=== PATIENT | male | born 1955 | race Caucasian/White ===

== ENCOUNTER 2019-03-20 22:43 | Inpatient (IN) | payer OTHER, MEDICAID ==
[~2019-03-20] VITALS: Ht 180.3 cm; Wt 127.0 kg
[~2019-03-20 22:43] MED LIST: ALDACTONE25 MG PO; ANORO ELLIPTA1 POW IH; COR3 PO; COZAAR50 MG PO; FLO4 PO; FUROSEMIDE40 MG PO; GLU500 PO
[2019-03-20 22:52] VITALS: Ht 180.3 cm; Wt 127.0 kg
--- NOTE | 2019-03-20 23:00 | NUR ---
PT BROUGHT TO ED BY [facility] AND [facility] FIRE WITH C/O ALOC. PER MEDICS, PT WAS FOUND WANDERING IN THE [email or web address] PARKING LOT. MEDICS STATE THAT PT WAS UNAWARE HOW HE GOT TO [facility] AND WAS UNAWARE OF WHERE HE WAS LIVING. PT IS ALERT AND ORIENTED TO PERSON, PLACE, AND TIME. PER MEDICS BLOOD GLUCOSE 127 ON SCENE. PT IS NOT NOTED WITH ANY SIGNS OF TRAUMA OR INJURY. PT DENIES FALL. [place] [employer] ON SCENE WELL. PT RESTING IN A POSITION OF COMFORT AT THIS TIME, PLACED ON MONITOR. PER MEDICS PT WAS IN ATRIAL FIBRILLATION, NO EKG OBTAINED BY MEDICS.
--- NOTE | 2019-03-20 23:01 | NUR ---
DR JETER AT BEDSIDE FOR MSE, NEURO EXAM NEGATIVE AT THIS TIME, LUNG SOUNDS CLEAR BILATERALLY.
--- NOTE | 2019-03-20 23:07 | NUR ---
PT OFF FLOOR FOR CT.
--- NOTE | 2019-03-20 23:13 | NUR ---
PT RETURNS FROM CT WITHOUT INCIDENT.
--- NOTE | 2019-03-20 23:36 | NUR ---
HOSE COUPLING JOINER AT BEDSIDE FOR BLOOD DRAW.
--- NOTE | 2019-03-20 23:37 | NUR ---
RT SATHISH AT BEDSIDE FOR ABG.
--- NOTE | 2019-03-20 23:47 | NUR ---
PROVIDED URINAL AT BEDSIDE. INSTRUCTED PT THE NEED FOR UA. PT VERBALIZED UNDERSTANDING.
[2019-03-21 00:19] LABS: BASOPHIL % 0.4 % (0-2); PLATELET COUNT 366 x10^3mcL (130-400)
[2019-03-21 00:43] LABS: CK-MB 1.2 ng/mL (0-3.6)
--- NOTE | 2019-03-21 00:45 | NUR ---
PT RESTING WITH EYES CLOSED AT THIS TIME, AOX4, RESP EVEN AND UNLABORED, NO ACUTE DISTRESS NOTED.
[2019-03-21 00:55] LABS: microscopic required? NO
[2019-03-21 01:06] LABS: CALCIUM 7.9 mg/dL (8.5-10.1); CARBON DIOXIDE 25.1 mmol/L (21-32); POTASSIUM SERUM 4.2 mmol/L (3.5-5.1)
[2019-03-21 01:11] LABS: BILIRUBIN TOTAL 0.2 mg/dL (0.20-1.00); TOTAL PROTEIN, SERUM 6.8 g/dL (6.4-8.2)
[2019-03-21 01:13] LABS: ALBUMIN 2.6 g/dL (3.4-5.0)
[2019-03-21 01:24] LABS: UA SPECIFIC GRAVITY <=1.005 (1.005-1.035); urine erythrocyte NEGATIVE (NEGATIVE)
--- NOTE | 2019-03-21 01:32 | NUR ---
PT MEDICATED FOR PAIN AT THIS TIME. PT REMAINS ON CM IN VIEW OF NURSE'S STATION.
--- NOTE | 2019-03-21 02:35 | NUR ---
PT REPORT CALLED TO ROHIT JACOME TO ASSUME PT CARE.
--- NOTE | 2019-03-21 02:40 | NUR ---
PT TRANSFERRED TO 255B BY [facility] BY MYSELF AND [facility] EMT. PT ON FULL CM AND 2L O2 FOR TRANSPORT. PT ALERT TO PERSON, PLACE, AND TIME, RESP EVEN AND UNLABORED, NO ACUTE DISTRESS NOTED. PT TRANSFERRED FROM [facility] TO BED WITHOUT INCIDENT. PT CARE ENDORSED TO ROHIT JACOME AT BEDSIDE.
--- NOTE | 2019-03-21 02:50 | NUR ---
RECEIVED PT FROM ER VIA GURNEY ACCOMPANIED BY RN AND EMT. PT TRANSFERRED TO BED 255 B WITH NO COMPLICATIONS. VITALS UPON ARRIVAL: R 94, NIBP 156/83 MAP 105, RR 18, TEMP 97.9. 94%. PT IS A/OX4. SPEECH IS CLEAR. ABLE TO MAKE NEEDS KNOWN AND FOLLOW COMMANDS. PT CONFUSED AT TIMES. BREATHING IS E/U ON 2 LPM VIA NC. LUNGS SOUND CLEAR TO BUL AND DIMIN TO BLL. SYMMETRICAL CHEST EXPANSION NOTED. S1/S2 HEART SOUNDS AUSCULTATED. CHEST WALL EQUAL AND SYMMETRICAL. DENIES ANY CP. PT ON TELE [address] PACEMAKER NOTED TO LEFT UPPER CHEST. PALPABLE PULSES X4 EXTREMITIES. SKIN IS WARM AND DRY. CAP REFILL < 3 SECS. +4 PITTING EDEMA NOTED TO BLE. LH IV IN PLACE WITH NO S/S OF INFILTRATION NOTED. GENERALIZED WEAKNESS. PT ON BEDREST. NO JOINT SWELLING/DEFORMITY NOTED. ACTIVE FULL ROM X4 EXTREMITIES. ABD IS SOFT/DISTENDED. BOWEL SOUNDS ACTIVE X4 QUADRANTS. PT STS HE HAD A FORMED BROWN BM YESTERDAY. PT VOIDS FREELY VIA URINAL. NO SCROTAL EDEMA/PENILE DISCHARGE NOTED. ECCHYMOSIS NOTED TO BUE. SCABS NOTED TO BUE/BLE. DRY FLAKY SKIN NOTED TO BLE. PT RESTLESS/AGITATED AT TIMES. PT ORIENTED TO ROOM AND USE OF CALL LIGHT. WILL CONT TO MONITOR
[2019-03-21 03:00] VITALS: BP 156/83
[2019-03-21 03:13] VITALS: BP 156/83
[2019-03-21 04:36] LABS: AMPHETAMINE QUAL UR NONE DETECTED (See below)
--- NOTE | 2019-03-21 05:25 | NUR ---
PT IS A/OX4, LYING IN BED. PT REMAINS ON 2 LPM VIA NC WITH NO S/S OF RESP DISTRESS NOTED. BREATHING IS E/U. LH IV REMAINS IN PLACE, SALINE LOCKED. BED IN LOW POSITION. CALL LIGHT IN REACH. WILL CONT TO MONITOR
--- NOTE | 2019-03-21 07:15 | NUR ---
REPORT GIVEN TO SHIRLENE JACOME. ALL QUESTIONS/CONCERNS ADDRESSED. ENDORSING ALL CARE
--- NOTE | 2019-03-21 07:50 | NUR ---
PATIENT IS SLEEPING BUT AROUSABLE WITH VERBAL STIMULI AND ORIENTED TO PERSON, PLACE AND WITH SOME FORGETFULNESS. PATIENT DENIES SHORTNESS OF BREATH, NAUSEA/VOMITING AT THIS TIME. PATIENT STATES HAVING SOME BACK PAIN 3/10 AND TOLERABLE AT THIS TIME. WILL MEDICATE FOR PAIN PRN. IV SITE NOTED AT LEFT HAND. TELE # 15 READS SINUS RHYTHMS AT THIS TIME. PACEMAKER/AICD TO LEFT UPPER CHEST. CALL LIGHT WITHIN REACH. SIDE RAILS UP X3. BED IS AT LOWEST POSITION.
[2019-03-21 09:11] VITALS: BP 144/63
--- NOTE | 2019-03-21 09:31 | NUR ---
INFORMED THE PATIENT THAT THE PATIENT WILL BE ADMINISTERED PNEUMOCOCCOCAL VACCINE; PATIENT REFUSED AND STATED, "I GOT THE VACCINE LAST YEAR."
--- NOTE | 2019-03-21 10:58 | NUR ---
PATIENT C/O ACHING TO LEFT SIDE OF CHEST 01/22; THE PAIN DOES NOT RADIATE. BP 123//62, MAP 81, HR 94, O2 SAT 94%. THE OXYGEN 2L/MIN VIA NASAL CANNULA ADMINSTERED TO THE PATIENT. DR. GARBER WAS CALLED AND NOTIFIED OF THIS ABOVE. TELEPHONE ORDER RECEIVED: EKG AND TROP X1 STAT. NITRO 0.4MG SL Q5 X3 PRN. WILL CARRY OUT THE ORDER.
[2019-03-21 13:15] VITALS: BP 132/71
--- NOTE | 2019-03-21 13:22 | NUR ---
DR. GARBER IS AT NURSE STATION AND WAS INFORMED THE RESULT OF EKG AT 1058 AND TROP LEVEL<0.02. NO FURTHER ORDER RECEIVED AT THIS TIME.
--- NOTE | 2019-03-21 15:50 | NUR ---
CALLED TELE CONSULT; DARRICK ANSWERED THE PHONE AND WAS PROVIDED THE PATIENT'S INFORMATION. AWAITING FOR THE CONSULT.
[2019-03-21 17:35] VITALS: BP 116/58
--- NOTE | 2019-03-21 18:05 | NUR ---
DR. EVERARDO HENDERSON, TELE CONSULT WAS PAGED TO NOTIFY HER THAT THE PATIENT HAS PACEMAKER/AICD, BUT HER RECOMMENDATION IS BRAIN MRI WITH AND W/O GADO. ALSO, ING-1 NEEDS TO BE VERIFIED FOR THE ORDER. AWAITING FOR DR. HENDERSON TO CALL BACK.
--- NOTE | 2019-03-21 18:49 | NUR ---
CALLED TO AND MADE AWARE THAT THE PATIENT IS ALLERGIC TO IODINE AND HE ORDERED TO TRANSFER TO [facility] FOR NEUROSURGEON CONSULT.
--- NOTE | 2019-03-21 20:49 | NUR ---
PATIENT RECEIVED AWAKE, ALERT, ORIENTED X3 IN BED. FORGETFUL AT TIMES. RESPIRATION EVEN AND UNLABORED, ON O2 2L PER NC. SALINE LOCK TO LT HAND PATENT AND INTACT. COMPLAINED OF BACK PAIN, 03/24. MEDICATED WITH MORPHINE SULFATE 2 MG IVP ORDERED. LBM 03/20/19. +4 EDEMA TO BLE. VOIDING FREELY WITHOUT DIFFICULTY, USES URINAL. GENERALIZED WEAKNESS TO EXTREMITIES. NEEDS ASSISTANCE WITH ADL'S. ECCHYMOSIS TO BUE, SCABS TO BUE/BLE AND DRY, FLAKY SKIN TO BLE. NEEDY AT TIMES. ON TELE #15. WILLL CONTINUE TO MONITOR.
[2019-03-21 21:21] VITALS: BP 111/38
--- NOTE | 2019-03-21 22:23 | NUR ---
PATIENT COMPLAINED OF STEADY SHARP/STABBING CHEST PAIN, 10/10. LATEST VITAL SIGNS FOLLOWS BP 100/42, HR 106, RR 20, O2 SAT 95% ON O2 2L PER NASAL CANNULA. MEDICATED WITH NITRO 0.4 MG SL ORDERED. WILL CONTINUE TO MONITOR.
[2019-03-22] VITALS (11 sets, daily range): BP systolic 101–138; BP diastolic 56–79
[2019-03-22 06:36] LABS: BASOPHIL % 0.4 % (0-2); PLATELET COUNT 393 x10^3mcL (130-400)
--- NOTE | 2019-03-22 06:50 | NUR ---
PATIENT RESTING IN BED. RESPIRATION EVEN AND UNLABORED, ON ROOM. SALINE LOCK TO LEFT HAND PATENT AND INTACT. COMPLAINED OF BACK PAIN,03/24. MEDICATED WITH MORPHINE SULFATE 2 MG IVP ORDERED. IRRITABLE, NEEDY, RUDE AT TIMES. ASSISTED WITH NEEDS. PLACED BED IN THE LOWEST POSITION. PLACED CALL LIGHT WITHIN REACH AT ALL TIMES.
[2019-03-22 06:55] LABS: RED CELL DISTRIBUTION WIDTH 19.3 % (11.5-14.5)
[2019-03-22 06:59] LABS: ALBUMIN 2.6 g/dL (3.4-5.0); BILIRUBIN TOTAL 0.3 mg/dL (0.20-1.00); CALCIUM 8.4 mg/dL (8.5-10.1); CARBON DIOXIDE 36.1 mmol/L (21-32); CREATININE SERUM 1.6 mg/dL (0.7-1.3); POTASSIUM SERUM 4.4 mmol/L (3.5-5.1); T4(THYROXINE) 4.3 ug/dL (4.7-13.3); TOTAL PROTEIN, SERUM 7.3 g/dL (6.4-8.2)
--- NOTE | 2019-03-22 07:10 | NUR ---
RECEIVED REPORT FROM VEENA JACOME, PT SLEEPING IN BED IN NO ACUTE DISTRESS
--- NOTE | 2019-03-22 07:42 | NUR ---
PT IN BED, IN NO ACUTE DISTRESS, VERBAL, AXOX3, CONFUSED AT TIMES, ABLE TO MAKE NEEDS KNOWN, CALM AND COOPERATIVE AT THIS TIME, POOR VISION BILATERLA EYES, PERRLA, NO REDNESS/DRAINAGE, NO FACIAL DROOP/SLURRED SPEECH, DENIED CP/PALPITATION/RODRIGUEZ, DENIED N/V/D, RESP EVEN, NO SOB/COUGH, DIM BLL, BIPAP PRN, 2L/MIN, NC, 94%, RT PROTOCOL, TELE #15, NSR, PACEMAKER TO RISSA, CHEST RISE SYMMETRICALLY, ABD ROUND AND NON-TENDER TO TOUCH, BS ACTIVE X 4, PALP PULSES, CAP REFILL < 3S, +4 NON-PITTING EDEMA TO BLE, ELEVATED FEET WHILE IN BED, SEE SKIN ASSESSMENT, SKIN C/D/W, GENERLAIZED WEAKNESS, PT PROTOCOL, IV PATENT AND FLUSHINIG WELL, DRESSING CDI, ALL NEEDS ADDRESSED AT THIS TIME, SAFETY PROTOCOL MAINTAINED, CONTINUE TO MONITOR
[2019-03-22 07:55] LABS: ERYTHROCYTE SED RATE 86 mm/hr (0-20)
--- NOTE | 2019-03-22 08:02 | NUR ---
PT REFUSED US CAROTID PROCEDURE, DR GARBER MADE AWARE, NNO, CONTINUE TO MONITOR
--- NOTE | 2019-03-22 09:48 | NUR ---
AM MEDS GIVEN PER MD ORDER VIA EMAR, TOLERATED WELL, NO ASE NOTED AT THIS TIME, EDUCATION R/T MED, ASE AND MONITOR GIVEN TO PT, VERBALLY UNDERSTANDING, CONTINUE TO MONITOR
--- NOTE | 2019-03-22 13:45 | NUR ---
PT ASSISTED TO BATHROOM, BM X 1, LARGE, ASSISTED BACK TO BED, IN NO ACUTE DISTRESS, PT REFUSED TO PUT O2 VIA NC AT THIS TIME, O2 AT 92%
--- NOTE | 2019-03-22 16:59 | NUR ---
PT REPORTED CP, LOCAL, NOT REDIATE TO OTHER PLACE, NITRO GIVEN PER PRN ORDER SUBLINGUAL, TOLERATED WELL, REPOTED PAIN SUBSIDED AFTER 5 MINS, PT RESTING IN BED IN NO ACUTE DISTRESS AT THIS TIME, CHARGE SMITH RICHMOND MADE AWARE, CONTINUE TO MONITOR
--- NOTE | 2019-03-22 17:22 | NUR ---
LAB REPORT PT (+) MRSA NARES, CONTACT ISOLATION INITIATED, PT MADE AWARE, CHARGE NURSE BASILIO MADE AWARE
--- NOTE | 2019-03-22 18:06 | NUR ---
TELE REAPLIED, HR NOTED 80 AT THIS TIME, DENIED CP/PALPITATIONHA, PT IN BED IN NO ACUTE DISTRESS
--- NOTE | 2019-03-22 18:43 | NUR ---
PT SLEEPING IN BED, IN NO APPARENT DISTRESS, NO FACIAL DROOP, RESP EVEN, NO SON/COUGH, 2L/MIN, 94%, NC, RT PROTOCOL, BIPAP PRN HS, TELE #15, PACE MAKER TO RISSA, IV PATENT AND FLUSING WELL, DRESSING CDI, ALL NEEDS ADDRESSED AT THIS TIME, SAFETY PROTOCOL FOLLOWED, WILL ENDORSE TO ONCOMING RN
--- NOTE | 2019-03-22 19:05 | NUR ---
PT IN BED IN NO ACUTE DISTRESS, TELE, DENIED CP/PALPITATION, DENIED N/V, DENIED NUMBESS/TINGLING TO (R) WRIST, CAP REFILL < 2S, SKIN C/D/W, IV PATENT AND FLUSHING WELL, DRESSING CDI, ALL NEEDS ADDRESSED, MANUELA ENDROSE TO NIGHT RN
--- NOTE | 2019-03-22 20:19 | NUR ---
CALLED TO AND MADE AWARE THAT THE PATIENT BE TRANSFER TONITE TO [facility].
--- NOTE | 2019-03-22 20:26 | NUR ---
[facility] FROM [facility] CALLED AND BED IS AVAILABLE AT [facility] [address], OBS/TELE UNIT. ACCEPTING MD IS DR. Margarita CARRION. TO GIVE REPORT TO [phone]. [facility] WILL CALL. PT CONTACT ISOLATION MRSA NARES. [facility] TO STOP BY ER.
--- NOTE | 2019-03-22 23:44 | NUR ---
1999 pt informed hi is going to be transferred to [facility]. He is happy for that. Pt left with belongings with EMS at 2200.
[2019-03-23 05:07] LABS: RAPID PLASMA REAGIN Non Reactive (Non Reactive)
[2019-03-23 09:08] LABS: RHEUMATOID ARTHRITIS FACTOR 12.2 IU/mL (0.0-13.9)
== END 2019-03-22 22:30 | disposition short-term general hospital (02) | DRG 70 ==
LOC: ED 22:43 → DU 03-21 02:11
PROVIDERS: Emergency Medicine; ADMIT Internal Medicine
DX: G93.89 Other specified disorders of brain (principal); G93.41 Metabolic encephalopathy; I42.9 Cardiomyopathy, unspecified; J44.9 Chronic obstructive pulmonary disease, unspecified; I12.9 Hypertensive chronic kidney disease with stage 1 through stage 4 chronic kidney disease, or unspecified chronic kidney disease; N18.9 Chronic kidney disease, unspecified; E11.22 Type 2 diabetes mellitus with diabetic chronic kidney disease; G47.33 Obstructive sleep apnea (adult) (pediatric); I25.10 Atherosclerotic heart disease of native coronary artery without angina pectoris; Z59.0 Homelessness; Z68.39 Body mass index [BMI] 39.0-39.9, adult; Z79.84 Long term (current) use of oral hypoglycemic drugs; Z95.810 Presence of automatic (implantable) cardiac defibrillator
CPT/HCPCS: 36600; 82024; 82962; 84439; 86431; 90658; G0378; G0480; J1940; J2270; J2405; J3490; J7030; J7620; Q0092

== ENCOUNTER 2019-03-23 16:11 | Inpatient (IN) | payer OTHER, MEDICAID ==
[~2019-03-23] VITALS: Ht 180.3 cm; Wt 127.0 kg
[2019-03-23 16:11] VITALS: Ht 180.3 cm; Wt 127.0 kg
--- NOTE | 2019-03-23 16:37 | NUR ---
PT BIB [facility] FOR MECHANICAL FALL OVER A CEMENT PIECE IN PARKING LOT AT [employer] [facility]. PT DENIES ANY LOSS OF CONSCIOUSNESS AAOX4 ABRASIONS TO BILATERAL KNEES. AND BUE DRY BLOOD NOTED TO SIDE OF L EYE NO LAC NOTED PT IN POSITION OF COMFORT AWAITING EVROBERTO AND ORDERS.
--- NOTE | 2019-03-23 16:57 | NUR ---
CARE OF PT RESUMED BY PRIMARY RN JAVIER
--- NOTE | 2019-03-23 17:52 | NUR ---
PT IN XRAY.
--- NOTE | 2019-03-23 18:43 | NUR ---
PT BACK FROM XRAY. REPORTS CONTINUED PAIN AND YELLING OUT FOR PAIN MEDICATION. DR NGUYEN NOTIFIED. VSS.
--- NOTE | 2019-03-23 19:08 | NUR ---
REPORT RECEIVED FROM JAVIER AGENCY RN
--- NOTE | 2019-03-23 19:50 | NUR ---
2 UNSUCCESSFUL IV ATTEMPTS BY ME SIVAKUMAR JACOME AT BEDSIDE FOR IV INSERTION ATTEMPT
[2019-03-23 19:54] LABS: BASOPHIL % 0.2 % (0-2); PLATELET COUNT 375 x10^3mcL (130-400)
[2019-03-23 19:57] LABS: RED CELL DISTRIBUTION WIDTH 19.2 % (11.5-14.5)
[2019-03-23 20:16] LABS: CARBON DIOXIDE 34.5 mmol/L (21-32); CREATININE SERUM 1.4 mg/dL (0.7-1.3); POTASSIUM SERUM 4.5 mmol/L (3.5-5.1)
[2019-03-23 20:21] LABS: BILIRUBIN TOTAL 0.42 mg/dL (0.20-1.00); TOTAL PROTEIN, SERUM 7.6 g/dL (6.4-8.2)
[2019-03-23 20:23] LABS: ALBUMIN 2.8 g/dL (3.4-5.0)
--- NOTE | 2019-03-23 20:39 | NUR ---
REPORT GIVEN TO TOO JACOME
--- NOTE | 2019-03-23 21:02 | NUR ---
PT PROVIDED WITH [facility] PER REQUEST. MD NGUYEN STATES OKAY PRIMARY RN TOO AWARE PT WAS FED AND THAT PT IS SEEING THINGS PT SEEN TO BE POINTING AT THINGS AND ASKING QUESTIONS ABOUT THINGS THAT ARE NOT THERE. PT STATES "CAN I HAVE SOME OF THOSE CHIPS" WHEN ASKED WHAT CHIPS HE POINTS TO THE BLANK WALL AT THE NURSES STATION
--- NOTE | 2019-03-23 21:20 | NUR ---
RECEIVED FROM ER, TRANSPORTED VIA [facility]. AWAKE, ALERT, ABLE TO STATE NAME, , UNABLE TO STATE WHERE HE IS, ABLE TO STATE YEAR AND MONTH. PT FORGETFUL. DENIES HAVING DIZZINESS. BREATHING EVEN AND UNLABORED ON ROOM AIR, O2 SAT 83-85%. PLACED ON 3LPM OF O2 VIA NC, O2 SAT 93%. LUNG SOUNDS DIMINISHED TO BASES. IMMOBILIZER TO LEFT KNEE. ABLE TO MOVE LEFT TOES AND LEFT FOOT. CAPILLARY REFILL TO LEFT TOES < 2 SECS. SWELLING TO LEFT KNEE. SALINE LOCK, 24G TO RIGHT WRIST. STATED HE USED TO STAY IN [facility], BUT HAS NOT BEEN ABLE TO STAY THERE DUE TO FINANCIAL REASONS. ORIENTED TO ROOM ENVIRONMENT, INSTRUCTED ON USE OF CALL LIGHT TO CALL FOR ASSISTANCE. PLACED WITHIN EASY REACH, BED ALARM ON. HOB ELEVATED 20 DEG. ENDORSED TO NURSE GAGE. ON CONTACT ISOLATION, RECENT HX OF MRSA.
[2019-03-23 21:59] VITALS: BP 132/70
[2019-03-23 23:10] VITALS: BP 132/70
[2019-03-24 05:01] VITALS: BP 158/66
--- NOTE | 2019-03-24 07:11 | NUR ---
RECEIVED PT FROM FABRIC MACHINE OPERATOR NURSE. PT SITTING UPRIGHT IN BED A0X2, RESP E/U ON 4L NC. PT SLIGHTLTY CONFUSED, REORIENTED PT TO STAFF AND ROOM, OTHERWISE NO ACUTE DISTRESS NOTED. SALINE LOCKED TO R WRIST W/ NO ERYTHEMA OR EDEMA. KNEE BRACE TO L LEG INTACT. BED IN LOWEST POSITION AND CALL LIGHT WITHIN REACH. ON CONTACT PRECAUTIONS FOR MRSA NARES. WILL CONTINUE TO MONITOR.
[2019-03-24 07:59] VITALS: BP 134/70
[2019-03-24 11:51] VITALS: BP 111/68
--- NOTE | 2019-03-24 12:30 | NUR ---
PT IN BED SLEEPING, AROUSABLE, RESP E/U ON 4L NC. NO ACUTE DISTRESS NOTED AT THIS TIME. BED IN LOWEST POSITION AND CALL LIGHT WITHIN REACH. WILL CONTINUE TO MONITOR.
[2019-03-24 16:03] VITALS: BP 122/66
--- NOTE | 2019-03-24 18:26 | NUR ---
PT ASSISTED TO BEDSIDE COMMODE, GAIT UNSTEADY BUT ABLE TO TOLERATE A FEW STEPS AND TURNING W/ WALKER AND ASSISTANCE. ASSISTED BACK TO BED, PT AXO2, RESP E/U ON 4L NC. NO ACUTE DISTRESS NOTED. SALINE LOCKED TO R WRIST W/ NO ERYTHEMA OR EDEMA. BED IN LOWEST POSITION AND CALL LIGHT WITHIN REACH. WILL ENDORSE TO ONCOMING NURSE.
--- NOTE | 2019-03-24 19:51 | NUR ---
RECEIVED PT FROM PREVIOUS SHIFT. PT A/OX2. DENIES SOB ON 3LNC. MEDICATED PRN PER EMAR. IV PATENT, FLUSHING WELL. CALL LIGHT WITHIN REACH, BED IN LOW POSITION. WILL CONTINUE TO MONITOR.
[2019-03-24 21:10] VITALS: BP 121/62
--- NOTE | 2019-03-25 00:21 | NUR ---
IV TO R WRIST REMOVED BY PATIENT. DENIES PAIN. NO BLEEDING/SWELLING TO SITE. NEW IV PLACED TO L HAND BY NAA PURCELL. WILL CONTINUE TO MONITOR.
--- NOTE | 2019-03-25 02:01 | NUR ---
PT RESTING IN NO ACUTE DISTRESS. RR EVEN AND UNLABORED. CALL LIGHT WITHIN REACH, BED IN LOW POSITION. WILL CONTINUE TO MONITOR.
--- NOTE | 2019-03-25 04:49 | NUR ---
PT REMOVED IV TO L HAND. NEW IV PLACED TO RFA BY ESTELLA MENDEZ. CALL LIGHT WITHIN REACH, BED IN LOW POSITION. WILL CONTINUE TO MONITOR.
[2019-03-25 05:50] VITALS: BP 107/77
--- NOTE | 2019-03-25 08:06 | NUR ---
A&OX3, FOLLWOS COMMANDS. MED/SURG PATIENT. PERIPHERAL PULSES PALPABLE, WITH BLE NONPITTING EDEMA. DIMINISHED BILATERAL LUNG SOUNDS W/ NC 3L O2 SAT 97%. NORMOACTIVE BSX4 PRESENT, LAST BM 03/23/19. VOIDS WELL W/ URINAL AT BEDSIDE. L KNEE BRACED, GENERALIZED WEAKNESS, NEEDS ASSISTANCE IN GOING UP THE BED. MULTIPLE SCABS PRESENT, W/ SITES CDI. RFA IV SITE CDI, SALINE LOCKED. COOPERATES WELL.
[2019-03-25 08:39] VITALS: BP 122/59
--- NOTE | 2019-03-25 16:22 | NUR ---
CALLED TO [facility] AND SPOKE W/ JOY ADMISSION COORDINATOR AND ASKED FOR ACCEPTING DOCTOR AND SHE STATED IT'S . CALLED TO AND MADE AWARE THAT THE PATIENT IS ACCEPTED AT [facility] AND W/ ALEX.
[2019-03-25 16:27] VITALS: BP 122/59
[2019-03-25 16:47] VITALS: BP 116/68
--- NOTE | 2019-03-25 17:26 | NUR ---
GAVE REPORT TO RN AT [facility]. MENTIONED PATIENT'S STATUS AND REPORTED HEALTH ASSESSMENT. REPORTED THAT AMBULANCE IS PICKING UP PATIENT AT 1930. GAVE CALLBACK NUMBER IN CASE OF FURTHER QUESTIONS THAT ARE TO BE ASKED.
--- NOTE | 2019-03-25 18:58 | NUR ---
PATIENT IS ALERT AND ORIENTED X3. PATIENT REMAINS FREE FROM DISTRESS. PATIENT NEEDS HAVE BEEN MET THROUGHOUT THE SHIFT. PLANS IS TO BE TRANSFERRED TO A SNF DURING [facility].
--- NOTE | 2019-03-25 19:15 | NUR ---
CARE ASSUMED FROM OUTGOING RN. PT RESTING COMFORTABLY IN BED. NO ACUTE DISTRESS NOTED. EVEN AND UNLABORED RESPIRATIONS ON RA. MEDSURG PT. IVL INTACT. LEFT KNEE BRACED DUE TO FX. C/O PAIN, WILL MEDICATE PER EMAR. ORDERS TO TX TO SNF, WILL GO OVER TRANSFER PAPERWORK WITH PT. TRANSPORT ETA 193. BED IN LOWEST POSITION. SIDE RAILS UPX2. CALL LIGHT WITHIN REACH. WILL CONTINUE TO MONITOR.
[2019-03-25 21:00] VITALS: BP 107/58
--- NOTE | 2019-03-25 21:00 | NUR ---
[facility] AT BEDSIDE. IV TO RFA REMOVED, CATHETER INTACT, PRESSURE APPLIED, NO EXCESSIVE BLEEDING NOTED, GAUZE AND TYPE APPLIED. ALL BELONGINGS NOTED FOR. PAPERWORK SIGNED. PT IN NO ACUTE DISTRESS. WILL ENDORSE TO TRANSPORT.
--- NOTE | 2019-03-25 21:05 | NUR ---
[facility] PERSONNELS ADVISED THAT PT IS NOT QUALIFIED FOR [facility] DUE TO WEIGHT AND HEIGHT. RACE RELATIONS ADVISER NOTIFIED.
--- NOTE | 2019-03-25 21:08 | NUR ---
[facility] CAME AND UNABLE TO PICK PT UP ON THEIR REGULAR [facility] DUE TO PT NEEDS JACOBY TRUJILLO. SPOKEN WITH [facility] [phone] AND [facility] TRU[facility] WONT BE AVAILABLE UNTIL MAYBE 2AM. SCHEDULED PATIENT TO BE MFT AT 0545AM TOMORROW MORNING PER [facility]. [facility] NOTIFIED CARMITA MADE AWARE, SPOKEN WITH AGUSTIN. PT MADE AWARE.
--- NOTE | 2019-03-25 21:21 | NUR ---
CALLED JILLIAN VIZCARRA REGARDING [facility]CH[facility] OR [facility] AT 5:45 AM.
--- NOTE | 2019-03-26 00:20 | NUR ---
PT ASLEEP COMFORTABLY IN BED. NO ACUTE DISTRESS NOTED. EVEN AND UNLABORED RESPIRATIONS ON RA. BED IN LOWEST POSITION. SIDE RAILS UPX2. CALL LIGHT WITHIN REACH. WILL CONTINUE TO MONITOR.
[2019-03-26 05:17] VITALS: BP 149/77
--- NOTE | 2019-03-26 06:16 | NUR ---
PT SLEPT COMFORTABLY IN INTERVALS THROUGHOUT THE SHIFT. ALL NEEDS TENDED TO AND MET. ALL SCHEDULED MEDICATIONS GIVEN. C/O PAIN MEDICATED PER EMAR. REMOVED PT WATCH, SKIN TEAR NOTED AND CLEANED. PHOTO TAKEN. DRESSING WITH NON ADHESIVE DRESSING AND TERRI WRAP. BLOOD SUGARS CHECKED, NO COVERAGE NEEDED PER SLIDING SCALE. CURRENTLY AWAITING TRANSPORTATION TO TRANSFER TO SNF. ALL PAPERWORKS SIGNED, IV REMOVED. BED IN LOWEST POSITION. SIDE RAILS UPX2. CALL LIGHT WITHIN REACH. WILL ENDORSE TO TRANSPORTATION OR ONCOMING SHIFT.
--- NOTE | 2019-03-26 07:30 | NUR ---
RECEIVED REPORT FROM [facility] NURSE, PATIENT ALERT/ORIENTEDX4, ABLE TO MAKE NEEDS KNOWN AND FOLLOW COMMANDS. SPEECH CLEAR, EQUAL GREEN PIPEFITTER, CATERACTS NOTED TO EYES. DENIES HEADACHE. NO S/S CHEST PAIN, M/S PATIENT. LUNGS DIM BILAT, DENIES FEELING SOB ON RA, CHEST EXP SYMMETRICAL. BOWEL SOUNDS ACTIVE, PASSING GAS. DENIES N/V. LAST BM YESTERDAY, PATIENT STATES NORMAL. VOIDS TO URINAL, CLEAR YELLOW URINE. DENIES PAIN UPON URINATION. PATIENT W/ LT KNEE FX S/P FALL, KNEE WRAPPED WITH TERRI BANDAGE, DRESSING CDI, W/ KNEE IMMOBILIZER. EDEMA NOTED TO BLE (LT>RT), SENSATION INTACT, PERIPHERAL PULSES PALPABLE. LFA SKIN TEAR COVERED W/ DRESSING CDI. DRY SCAB TO LT HAND COVERED W/ BANAID CDI. SCATTERED/GENERALIZED SMALL DRY SCABS NOTED. PATIENT REQUESTING FOR PAIN MED FOR C/O KNEE PAIN, NORCO GIVEN. NO IV SITE, PAT[facility] TO [facility] PICK[facility] THIS AM [facility] CALL LIGHT WITHIN REACH, BED AT LOWEST POSITION.
--- NOTE | 2019-03-26 08:45 | NUR ---
BREAKFAST FEEDING ASSISTANCE PROVIDED, ATE 100% OF MEAL. KNEE IMMOBILIZER LOOSE, REPLACED CORRECTLY. TRANSPORTER HERE TO TRANSFER PATIENT. ALL QUESTIONS/CONCERNS ADDRESSED. NO IV SITE. NO ACUTE DISTRESS.
== END 2019-03-26 09:15 | DRG 563 ==
LOC: ED 16:11 → MU 20:10 → EDBEDREQ 20:21 → MU 21:20
PROVIDERS: Emergency Medicine; ADMIT Internal Medicine
DX: S82.045A Nondisplaced comminuted fracture of left patella, initial encounter for closed fracture (principal); I42.9 Cardiomyopathy, unspecified; M25.462 Effusion, left knee; J44.9 Chronic obstructive pulmonary disease, unspecified; G93.89 Other specified disorders of brain; J45.909 Unspecified asthma, uncomplicated; E11.9 Type 2 diabetes mellitus without complications; I25.10 Atherosclerotic heart disease of native coronary artery without angina pectoris; S60.411A Abrasion of left index finger, initial encounter; S60.417A Abrasion of left little finger, initial encounter; S60.415A Abrasion of left ring finger, initial encounter; S80.212A Abrasion, left knee, initial encounter; S80.211A Abrasion, right knee, initial encounter; N18.9 Chronic kidney disease, unspecified; M19.90 Unspecified osteoarthritis, unspecified site; W18.39XA Other fall on same level, initial encounter; Y93.89 Activity, other specified; Y92.89 Other specified places as the place of occurrence of the external cause; Z59.0 Homelessness; Z68.35 Body mass index [BMI] 35.0-35.9, adult; Z79.84 Long term (current) use of oral hypoglycemic drugs
CPT/HCPCS: 82962; 97116-GP; 97530-GP; G0378; J2060; J2270; J7620; J7626; Q0092; Q0162